=== PATIENT | female | born 1985 | race African-American/Black ===

== ENCOUNTER 2018-02-07 13:23 | Emergency (ER) | payer MEDICAID ==
[~2018-02-07] VITALS: Ht 160 cm; Wt 82.0 kg
[2018-02-07 16:44] VITALS: BP 112/76
== END 2018-02-07 16:50 | disposition left against medical advice (07) ==
LOC: ER 13:23
DX: M25.562 Pain in left knee (principal); X58.XXXA Exposure to other specified factors, initial encounter; Y93.B9 Activity, other involving muscle strengthening exercises; Y92.89 Other specified places as the place of occurrence of the external cause
CPT/HCPCS: 73562; 81025; 99284; Z7610